=== PATIENT | male | born 1995 | race Caucasian/White ===

== ENCOUNTER 2018-12-14 00:39 | Emergency (ER) | payer OTHER ==
--- NOTE | 2018-12-14 01:25 | RADIOLOGY REPORT (SQ) ---
XR CHEST 1 VIEW HISTORY: Chest pain. COMPARISON: None. FINDINGS: The heart size is normal. The lungs are clear. No pleural effusions or pneumothorax is seen. No acute bony findings. IMPRESSION: No evidence of acute cardiopulmonary disease.
[2018-12-14 01:34] LABS: ANION GAP 8 (5-19); BLOOD UREA NITROGEN 12 mg/dL (7-20); CALCIUM 10.1 mg/dL (8.4-10.2); CARBON DIOXIDE 25 mmol/L (22-30); CHLORIDE 107 mmol/L (98-107); GLUCOSE 108 mg/dL (75-110); POTASSIUM 4.1 mmol/L (3.6-5.0); SODIUM 139.8 mmol/L (137-145)
[2018-12-14] MEDS ORDERED: IBUPROFEN 600 MG TABLET PO ONE (02:21)
--- NOTE | 2018-12-14 02:25 | ER Document Report ---
ED General - General Chief Complaint: Numbness of Arm Stated Complaint: LEFT ARM NUMBNESS Time Seen by Provider: 12/14/18 00:55 Notes: Patient is a 23-year-old male without chronic medical problems who presents with approximately 12 hours of left-sided chest discomfort as well as intermittent left upper extremity paresthesias mostly localized over the forearm and hand. Patient stated that this started earlier today while at work. States that it was a dull, aching heaviness over the left side of his chest. States that nothing seemed to improve or worsen the discomfort when present. States that the symptoms have now all completely resolved since arriving here in the emergency department. Denies any history of similar symptoms in the past. Has not seen his primary care physician regarding today's concerns. He denies any associated nausea, vomiting or shortness of breath. No trauma to the chest wall. No neck pain. Mild pain to the left shoulder. Denies any cardiac history or family history of early cardiac disease. No history of DVT or pulmonary embolus. No use of supplemental estrogen. TRAVEL OUTSIDE OF THE [place] IN LAST 30 DAYS: No - Related Data Allergies/Adverse Reactions: No Known Allergies Allergy (Verified 12/14/18 00:41) Past Medical History - General Information source: Patient - Social History Smoking Status: Former Smoker Frequency of alcohol use: Social Drug Abuse: None Lives with: Family Family History: Reviewed & Not Pertinent Patient has suicidal ideation: No Patient has homicidal ideation: No Renal/ Medical History: Denies: Hx Peritoneal Dialysis Review of Systems - Review of Systems Notes: Constitutional: Negative for fever. HENT: Negative for sore throat. Eyes: Negative for visual changes. Cardiovascular: Positive for chest pain. Respiratory: Negative for shortness of breath. Gastrointestinal: Negative for abdominal pain, vomiting or diarrhea. Genitourinary: Negative for dysuria. Musculoskeletal: Negative for back pain. Skin: Negative for rash. Neurological: Negative for headaches, positive for left arm paresthesias 10 point ROS negative except as marked above and in HPI. Physical Exam - Vital signs Vitals: Temp Pulse Resp BP Pulse Ox 98 F 68 18 136/86 H 99 12/14/18 00:55 12/14/18 00:55 12/14/18 00:55 12/14/18 00:55 12/14/18 00:55 Interpretation: Normal Notes: PHYSICAL EXAMINATION: GENERAL: Well-appearing, well-nourished and in no acute distress. HEAD: Atraumatic, normocephalic. EYES: Pupils equal round and reactive to light, extraocular movements intact, sclera anicteric, conjunctiva are normal. ENT: nares patent, oropharynx clear without exudates. Moist mucous membranes. NECK: Normal range of motion, supple without lymphadenopathy LUNGS: Breath sounds clear to auscultation bilaterally and equal. No wheezes rales or rhonchi. HEART: Regular rate and rhythm without murmurs ABDOMEN: Soft, nontender, normoactive bowel sounds. No guarding, no rebound. No masses appreciated. EXTREMITIES: Normal range of motion, no pitting or edema. No cyanosis. NEUROLOGICAL: Face symmetric. Tongue protrudes midline. Extraocular motions intact. Pupils are 2 mm and equally reactive. Normal speech, normal gait. 5 out of 5 strength in both the distal and proximal upper and lower extremities bilaterally. Sensation is grossly intact throughout. Finger to nose testing normal. Pronator drift normal. PSYCH: Normal mood, normal affect. SKIN: Warm, Dry, normal turgor, no rashes or lesions noted. Course - Re-evaluation Re-evalutation: 12/14/18 02:22 Presentation of chest pain in an otherwise well appearing patient. Low clinical suspicion for ACS given clinical history, exam, EKG without ST elevations or depressions, and negative initial troponin. HEART score less than or equal to 3. PE also seems unlikely given clinical history, absence of tachycardia or dyspnea. Patient is PERC criteria negative. CXR without evidence of pneumothorax or pneumonia. No widened mediastinum. Aortic dissection also seems unlikely given history, symmetric pulses, CXR, and vitals. Patient's pain has been present for greater than 8 hours prior to arrival and given his lack of risk factors I do not believe serial markers are indicated. Patient is a symptomatic at the time of my assessment. His history appears overall most consistent with likely cervical nerve root impingement given paresthesias over the distribution of his forearm and hand on the left side when present as well as aching pain in his left shoulder and over his chest wall. At this time will discharge with return precautions and follow-up recommendations. Verbal discharge instructions given a the bedside and opportunity for questions given. Medication warnings reviewed. Patient is in agreement with this plan and has verbalized understanding of return precautions and the need for primary care follow-up in the next 24-72 hours. - Vital Signs Vital signs: Temp Pulse Resp BP Pulse Ox 98 F 68 18 136/86 H 99 12/14/18 00:55 12/14/18 00:56 12/14/18 00:55 12/14/18 00:55 12/14/18 00:55 - Laboratory Result Diagrams: 12/14/18 01:10 - Diagnostic Test Radiology reviewed: Image reviewed, Reports reviewed Radiology results interpreted by me: 12/14/18 02:23 Chest x-ray: No acute infiltrate or pneumothorax - EKG Interpretation by Me Additional EKG results interpreted by me: 12/14/18 02:23 Sinus rhythm, rate 68. No ST elevations or depressions. QTC is 396. Discharge - Discharge Clinical Impression: Chest discomfort, Arm paresthesia, left Condition: Good Disposition: HOME, SELF-CARE Additional Instructions: You were seen today for chest pain and left arm numbness. The exact cause of your pain is unclear but may be related to impingement of one-year cervical nerve roots. However, based on your cardiac enzyme testing, chest x-ray, and EKG it does not appear that it is from an immediately life-threatening cause at this time. Please return to emergency department immediately if you have worsening of your chest pain, shortness of breath, vomiting, become unable to exert yourself due to pain or difficulty breathing, you pass out, or have any pain that radiates into your arms, jaw, or back. Please also return if you have any additional symptoms that are concerning to you. Please follow-up with your primary care doctor within the next 24-48 hours. May take ibuprofen 600 mg every 6 hours as needed for discomfort.
[2018-12-14 02:42] VITALS: BP 112/59
--- NOTE | 2018-12-14 22:54 | EKG REPORT ---
SEVERITY:- NORMAL ECG - SINUS RHYTHM : Confirmed by: Mark Martínez 14-Dec-2018 22:52:56
== END 2018-12-14 02:57 | disposition home or self-care (01) ==
LOC: ER 00:39
DX: R20.0 Anesthesia of skin (principal); R07.89 Other chest pain; M25.512 Pain in left shoulder; Z87.891 Personal history of nicotine dependence
CPT/HCPCS: 36415; 71045; 80048; 84484; 93005; 93010; 99284